=== PATIENT | female | born 1980 | race Caucasian/White ===

== ENCOUNTER 2023-11-08 19:43 | Emergency (ER) | payer BC, SELFPAY ==
--- NOTE | 2023-11-08 21:07 | RAD REPORT ---
EXAM DESCRIPTION: RAD - Knee Left 3 View - 11/08/2023 8:48 pm CLINICAL HISTORY: Left knee pain FINDINGS: No fracture or dislocation is seen. No bone or joint abnormality noted
--- NOTE | 2023-11-08 21:10 | EDPHYS ---
Physician Documentation [facility] Name: Silke Bonilla Age: 43 yrs Sex: Female : 1980 Arrival Date: 11/08/2023 Time: 19:43 Bed DX1 Private MD: ED Physician Maricruz Wang HPI: 11/07 20:49 This 43 yrs old Female presents to ER via Wheelchair with complaints of Knee Pain. 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 kb States she was at her son's football practice, stood up from a sitting position and felt a pop in left knee. Has had pain and unable to bear weight since then. . Historical: - Allergies: 20:03 Anaprox; ss - Home Meds: 20:03 gabapentin [Active]; ss - PMHx: 20:03 Rheumatoid arthritis; Fibromyalgia; ss - Immunization history:: Client reports receiving the 2nd dose of the Covid vaccine. - Infectious Disease History:: Denies. - Social history:: Smoking status: Patient denies any tobacco usage or history of. ROS: 20:49 Constitutional: As per HPI kb Exam: 20:49 Constitutional: This is a well developed, well nourished patient who is awake, alert, kb and in no acute distress. Head/Face: Normocephalic, atraumatic. ENT: Moist Mucous membranes Cardiovascular: Regular rate Respiratory: Respirations even and unlabored. No increased work of breathing. Talking in full sentences Skin: Warm, dry with normal turgor. Normal color. Neuro: Awake and alert, GCS 15, oriented to person, place, time, and situation. Moves all extremities. Normal gait. 20:49 Musculoskeletal/extremity: Extremities: grossly normal except: noted in the lateral aspect of left knee: pain, tenderness, ROM: intact in all extremities, Circulation is intact in all extremities. Sensation intact. Weight bearing: is unable to bear weight, Vital Signs: 20:02 BP 129 / 89; Pulse 80; Resp 16; Temp 97.6(TE); Pulse Ox 100% on R/A; Weight 113.4 kg; ss Height 5 ft. 5 in. ; Pain 3/10; 20:02 Body Mass Index 41.60 (113.40 kg, 165.1 cm) ss 20:02 Pain Scale: Adult ss MDM: 19:46 Patient medically screened. kb 20:50 Differential diagnosis: fracture, sprain, strain. Data reviewed: vital signs, nurses kb notes. 21:08 Counseling: I had a detailed discussion with the patient and/or guardian regarding the kb historical points, exam findings, and any diagnostic results supporting the discharge/admit diagnosis, radiology results, the need for outpatient follow up, a orthopedic surgeon, to return to the emergency department if symptoms worsen or persist or if there are any questions or concerns that arise at home. 11/07 20:03 Order name: Knee Left 3 View XRAY; Complete Time: 21:08 kb 11/07 21:08 Order name: Knee Immobilizer; Complete Time: :44 kb 11/07 21:08 Order name: Crutches; Complete Time: :44 kb Administered Medications: 20:14 Drug: Ketorolac IM 30 mg IM once Route: IM; Site: left deltoid; ss 21:44 Follow up: Response: No adverse reaction; Pain is decreased ss Disposition Summary: 11/08/23 21:09 Discharge Ordered Notes: Location: Home kb Condition: Stable kb Diagnosis - Pain in left knee kb Followup: kb - With: Emergency Department - When: As needed - Reason: Worsening of condition Followup: kb - With: Private Physician - When: 2 - 3 days - Reason: Recheck today's complaints, Continuance of care, Re-evaluation by your physician Discharge Instructions: - Discharge Summary Sheet kb - Musculoskeletal Pain kb - Acute Knee Pain, Adult, [id number] kb Forms: - Medication Reconciliation Form kb - Antibiotic Education kb - Prescription Opioid Use kb - Patient Portal Instructions kb - Leadership Thank You Letter kb Prescriptions: - orphenadrine citrate 100 mg Oral Tablet Sustained Release - take 1 tablet ORAL route 2 times per day As needed; 20 tablet; Refills: 0, kb Product Selection Permitted Signatures: Dispatcher [employer] Regina Corona, CHRISTOPHER-Xenia WHITE-Marisa Coleman, RN RN ss
--- NOTE | 2023-11-08 21:10 | ER ---
Nurse's Notes [facility] Name: Silke Bonilla Age: 43 yrs Sex: Female : 1980 Arrival Date: 11/08/2023 Time: 19:43 Bed DX1 Private MD: Diagnosis: Pain in left knee Presentation: 11/07 20:02 Chief complaint: Patient states: Was getting up from seated position and heard a pop to ss L knee. Pt reports she is unable to bare weight onto L knee. Coronavirus screen: Client denies travel out of the [place] in the last 14 days. Ebola Screen: Patient denies exposure to infectious person. Patient denies travel to an Ebola-affected area in the 21 days before illness onset. Initial Sepsis Screen: Does the patient meet any 2 criteria? No. Patient's initial sepsis screen is negative. Does the patient have a suspected source of infection? No. Patient's initial sepsis screen is negative. Risk Assessment: Do you want to hurt yourself or someone else? Patient reports no desire to harm self or others. Onset of symptoms was November 08, 2023. 20:02 Method Of Arrival: Wheelchair 20:02 Acuity: AUDREY 4 ss Triage Assessment: 20:03 General: Appears in no apparent distress. comfortable, Behavior is calm, cooperative. ss Pain: Complains of pain in left knee Pain currently is 3 out of 10 on a pain scale. Is continuous. Historical: - Allergies: 20:03 Anaprox; ss - Home Meds: 20:03 gabapentin [Active]; ss - PMHx: 20:03 Rheumatoid arthritis; Fibromyalgia; ss - Immunization history:: Client reports receiving the 2nd dose of the Covid vaccine. - Infectious Disease History:: Denies. - Social history:: Smoking status: Patient denies any tobacco usage or history of. Vital Signs: 20:02 BP 129 / 89; Pulse 80; Resp 16; Temp 97.6(TE); Pulse Ox 100% on R/A; Weight 113.4 kg; ss Height 5 ft. 5 in. ; Pain 3/10; 20:02 Body Mass Index 41.60 (113.40 kg, 165.1 cm) ss 20:02 Pain Scale: Adult ED Course: 19:45 Patient arrived in ED. im 19:46 [facility]C [facility] kb 19:46 Maricruz Wang MD is Attending Physician. kb 20:03 Triage completed. ss 20:03 Arm band placed on right wrist. ss 20:50 Knee Left 3 View XRAY In Process Unspecified. EDMS 21:44 Marisa Ash, RN is Primary Nurse. ss 21:44 No provider procedures requiring assistance completed. Patient did not have IV access ss during this emergency room visit. Crutch training done. Knee immobilizer applied on left knee. Administered Medications: 20:14 Drug: Ketorolac IM 30 mg IM once Route: IM; Site: left deltoid; ss 21:44 Follow up: Response: No adverse reaction; Pain is decreased ss Outcome: 21:09 Discharge ordered by MD. kb 21:44 Discharged to home with crutches, with family, ss 21:44 Condition: good 21:44 Discharge instructions given to patient, Instructed on discharge instructions, follow up and referral plans. medication usage, Demonstrated understanding of instructions, follow-up care, medications, Prescriptions given X 1, 21:45 Patient left the ED. ss Signatures: Dispatcher [employer] EDID Regina Cuello FNP-C FNP-Marisa Coleman, RN RN Emma Hernandes
[2023-11-08 21:58] VITALS: BP 129/89; TEMP 97.6; O2SAT 100
== END 2023-11-08 21:45 | disposition home or self-care (01) ==
LOC: ER 19:43
DX: M25.562 Pain in left knee (principal)
CPT/HCPCS: 96372; 99284

== ENCOUNTER 2024-01-10 16:34 | Emergency (ER) | payer BC ==
--- NOTE | 2024-01-10 18:29 | RAD REPORT ---
EXAM:Extremity Venous Uni Ltd HISTORY: Left leg pain TECHNIQUE: Sonographic evaluation lower extremity performed.Grayscale, color and spectral analysis performed on all vessels COMPARISON: None. FINDINGS: Left common femoral, superficial femoral, greater saphenous, popliteal and posterior tibial veins are compressible and demonstrate augmentation. Doppler demonstrates good flow. IMPRESSION: No evidence of deep venous thrombosis involving the left lower extremity.
--- NOTE | 2024-01-10 18:37 | ER ---
Nurse's Notes [facility] Name: Silke Bonilla Age: 43 yrs Sex: Female : 1980 Arrival Date: 01/10/2024 Time: 16:34 Bed 10 Private MD: Diagnosis: Pain in left lower leg Presentation: 01/09 16:52 Chief complaint: Patient states: Left knee surgery on 12/01. Pt had her ACL replaced and cm10 meniscus repaired at [facility]. Pt states that last week she noticed pain to her left calf and today when she was at PT she had some tenderness and was told to come to the ED to rule out DVT. No redness. Coronavirus screen: Client denies travel out of the [place] in the last 14 days. Ebola Screen: Patient denies travel to an Ebola-affected area in the 21 days before illness onset. No symptoms or risks identified at this time. Initial Sepsis Screen: Does the patient meet any 2 criteria? No. Patient's initial sepsis screen is negative. Does the patient have a suspected source of infection? No. Patient's initial sepsis screen is negative. Risk Assessment: Do you want to hurt yourself or someone else? Patient reports no desire to harm self or others. Onset of symptoms was January 10, 2024. 16:52 Method Of Arrival: Ambulatory cm10 16:52 Acuity: AUDREY 3 cm10 Triage Assessment: 16:56 General: Appears in no apparent distress. comfortable, Behavior is calm, cooperative. cm10 Pain: Complains of pain in left calf Pain does not radiate. Pain currently is 5 out of 10 on a pain scale. Quality of pain is described as sharp, shooting, Pain began last week. Neuro: No deficits noted. Level of Consciousness is awake, alert, obeys commands, Oriented to person, place, time, situation, Appropriate for age. Respiratory: No deficits noted. Airway is patent Respiratory effort is even, unlabored, Respiratory pattern is regular, symmetrical. 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 - Infectious Disease History:: Denies. - Social history:: Smoking status: Patient denies any tobacco usage or history of. Screenin:58 [facility] ED Fall Risk Assessment (Adult) History of falling in the last 3 months, tl4 including since admission No falls in past 3 months (0 pts) Confusion or Disorientation No (0 pts) Intoxicated or Sedated No (0 pts) Impaired Gait No (0 pts) Mobility Assist Device Used No (0 pt) Altered Elimination No (0 pt) Score/Fall Risk Level 0 - 2 = Low Risk Oriented to surroundings, Maintained a safe environment, Educated pt \T\ family on fall prevention, incl call for assistance when getting out of bed, Assessed \T\ reinforced patient's understanding of fall precautions. Abuse screen: Denies threats or abuse. Denies injuries from another. Nutritional screening: No deficits noted. Tuberculosis screening: No symptoms or risk factors identified. Assessment: 18:30 General: Appears in no apparent distress. Behavior is calm, cooperative. Pain: tl4 Complains of pain in left leg. Neuro: Level of Consciousness is awake, alert, obeys commands, Oriented to person, place, time, situation. Cardiovascular: Capillary refill < 3 seconds Patient's skin is warm and dry. Respiratory: Airway is patent Respiratory effort is even, unlabored, Respiratory pattern is regular, symmetrical. GI: No signs and/or symptoms were reported involving the gastrointestinal system. : No signs and/or symptoms were reported regarding the genitourinary system. EENT: No signs and/or symptoms were reported regarding the EENT system. Derm: No signs and/or symptoms reported regarding the dermatologic system. Musculoskeletal: Reports pain in right leg. Vital Signs: 16:52 BP 114 / 59; Pulse 94; Resp 16; Temp 97.1(TE); Pulse Ox 99% on R/A; Weight 105.69 kg; cm10 Height 5 ft. 5 in. ; Pain 5/10; 18:46 BP 112 / 70; Pulse 83; Resp 19; Temp 97.5(O); Pulse Ox 100% on R/A; tl4 16:52 Body Mass Index 38.77 (105.69 kg, 165.1 cm) cm10 16:52 Pain Scale: Adult cm10 ED Course: 16:37 Patient arrived in ED. im 16:40 Caden Kim PA is PHCP. cp 16:40 Abraham Castillo DO is Attending Physician. cp 16:54 Triage completed. cm10 16:57 Arm band placed on right wrist. Patient placed in waiting room. cm10 17:47 US Extremity Venous Unilateral Ltd In Process Unspecified. EDMS 17:50 Ángel Khan, RN is Primary Nurse. tl4 17:59 Patient has correct armband on for positive identification. Bed in low position. Call tl4 light in reach. Side rails up X 1. Adult w/ patient. Provided Education on: ed process, call [facility]. Door closed. Noise minimized. Lights dimmed. Moved to private room. Warm blanket given. 18:00 No provider procedures requiring assistance completed. tl4 18:51 Patient did not have IV access during this emergency room visit. tl4 Administered Medications: No medications were administered Medication: 17:58 VIS not applicable for this client. tl4 Outcome: 18:36 Discharge ordered by MD. cp 18:51 Discharged to home ambulatory, with family, tl4 18:51 Condition: stable 18:51 Discharge instructions given to patient, Instructed on discharge instructions, follow up and referral plans. Demonstrated understanding of instructions, follow-up care, 18:52 Patient left the ED. tl4 Signatures: Dispatcher [employer] EDRI Caden Kim PA PA cp Mendoza, Itzel im Martinez, Clarissa, RN RN cm10 Ángel Khan, JOSE RN tl4
--- NOTE | 2024-01-10 18:37 | EDPHYS ---
Physician Documentation [facility] Name: Silke Bonilla Age: 43 yrs Sex: Female : 1980 Arrival Date: 01/10/2024 Time: 16:34 Bed 10 Private MD: ED Physician Abraham Castillo HPI: 01/09 18:25 This 43 yrs old Female presents to ER via Ambulatory with complaints of Leg Pain - left.cp 18:25 The patient presents with pain, that is acute, tenderness. The complaints affect the cp left lower calf area. Context: recent surgery for left knee meniscus repair and ACL replacement on 12-01-2023. Associated signs and symptoms: Pertinent negatives fever, rash, cellulitis. Treatment prior to arrival includes: no previous treatment. Patient reports being referred to ED by physical therapy for US to r/o DVT. 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 - Infectious Disease History:: Denies. - Social history:: Smoking status: Patient denies any tobacco usage or history of. ROS: 18:27 MS/extremity: Positive for pain, tenderness, of the left lower calf area, Negative for cp warmth, 18:27 Constitutional: Negative for body aches, chills, fever, poor PO intake, cp 18:27 Cardiovascular: Negative for chest pain, edema, 18:27 Respiratory: Negative for cough, shortness of breath, wheezing, 18:27 Skin: Negative for cellulitis, rash, 18:27 Neuro: Negative for dizziness, headache, weakness, 18:27 All other systems are negative, Exam: 18:31 Constitutional: The patient appears in no acute distress, alert, awake, non-toxic, well cp developed, well nourished, 18:31 Head/Face: Normocephalic, atraumatic. cp 18:31 Eyes: Periorbital structures: appear normal, Conjunctiva: normal, no exudate, no injection, Lids and lashes: appear normal, bilaterally, 18:31 ENT: External ear(s): are unremarkable, Nose: is normal, Mouth: Lips: moist, Oral mucosa: pink and intact, moist, Posterior pharynx: Airway: no evidence of obstruction, patent, 18:31 Neck: ROM/movement: is normal, is supple, without pain, no range of motions cp limitations, 18:31 Chest/axilla: Inspection: normal, 18:31 Cardiovascular: Rate: normal, Rhythm: regular, JVD: is not appreciated, 18:31 Respiratory: the patient does not display signs of respiratory distress, Respirations: normal, no use of accessory muscles, no retractions, labored breathing, is not present, Breath sounds: are clear throughout, no decreased breath sounds, no stridor, no wheezing, 18:31 Abdomen/GI: Exam negative for discomfort, distension, guarding, Inspection: abdomen appears normal, 18:31 Back: pain, is absent, ROM is normal, 18:31 Musculoskeletal/extremity: Extremities: noted in the left leg: incisions to anterior knee appear with no signs infection, general tenderness to palpation, mild swelling noted, mild lower calf tenderness, negative Rc's sign, 18:31 Neuro: Orientation: to person, place \T\ time. Mentation: is normal, Motor: moves all cp fours, strength is normal, Sensation: no obvious gross deficits, Vital Signs: 16:52 BP 114 / 59; Pulse 94; Resp 16; Temp 97.1(TE); Pulse Ox 99% on R/A; Weight 105.69 kg; cm10 Height 5 ft. 5 in. ; Pain 5/10; 18:46 BP 112 / 70; Pulse 83; Resp 19; Temp 97.5(O); Pulse Ox 100% on R/A; tl4 16:52 Body Mass Index 38.77 (105.69 kg, 165.1 cm) cm10 16:52 Pain Scale: Adult cm10 MDM: 17:07 Medical Screening Exam initiated cp 18:00 Differential diagnosis: dvt, cellulitis, abscess. cp 18:35 Data reviewed: vital signs, nurses notes, radiologic studies, ultrasound, and as a cp result, I will discharge patient. 18:35 Counseling: I had a detailed discussion with the patient and/or guardian regarding the cp historical points, exam findings, and any diagnostic results supporting the discharge/admit diagnosis, radiology results, to return to the emergency department if symptoms worsen or persist or if there are any questions or concerns that arise at home. 01/09 17:07 Order name: US Extremity Venous Unilateral Ltd; Complete Time: 18:31 cp 01/09 18:31 Interpretation: Report reviewed. cp Administered Medications: No medications were administered Disposition: 18:37 I was immediately available on-site in the Emergency Department for consultation in the ms3 care of the patient. 01/10 13:51 Chart complete. cp Disposition Summary: 01/10/24 18:36 Discharge Ordered Notes: Location: Home cp Problem: new cp Symptoms: have improved cp Condition: Stable cp Diagnosis - Pain in left lower leg cp Followup: cp - With: Private Physician - When: 2 - 3 days - Reason: Worsening of condition Discharge Instructions: - Discharge Summary Sheet cp - Musculoskeletal Pain cp - How to Use Cold Therapy cp - Heat Therapy cp Forms: - Medication Reconciliation Form cp - Antibiotic Education cp - Prescription Opioid Use cp - Patient Portal Instructions cp - Leadership Thank You Letter cp Signatures: Dispatcher [employer] EDMS Caden Kim PA PA cp Abraham Castillo DO DO ms3 Cheryl Chavarria, RN RN cm10 Corrections: (The following items were deleted from the chart) 01/09 17:08 17:08 Extremity Venous Uni Ltd+.ERIS ordered. EDMD EDMS
[2024-01-10 19:15] VITALS: BP 112/70; TEMP 97.5; O2SAT 100
== END 2024-01-10 18:52 | disposition home or self-care (01) ==
LOC: ER 16:34
DX: M79.662 Pain in left lower leg (principal)
CPT/HCPCS: 93971; 99283